=== PATIENT | male | born 1975 | race Caucasian/White ===

== ENCOUNTER 2019-01-22 07:39 | Emergency (ER) | payer OTHER ==
[~2019-01-22] VITALS: Ht 188 cm; Wt 117.0 kg
[2019-01-22] MEDS ORDERED: XANAX1 MG PO (07:52)
[2019-01-22] MEDS ORDERED: NEURONTIN 300300 M1 PO (07:52)
[2019-01-22] MEDS ORDERED: WELLBUTRIN 75 M75 M1 PO (07:53)
[2019-01-22] MEDS ORDERED: BUTALB-APAP-CA1 EACH PO (08:10)
[2019-01-22] MEDS ORDERED: FLEXERIL PO (08:13)
[2019-01-22] MEDS ORDERED: IBUPROFEN 800800 M1 PO (08:13)
[2019-01-22 08:20] VITALS: BP 110/85
== END 2019-01-22 08:26 | disposition home or self-care (01) ==
LOC: M.ERS 07:39
DX: S16.1XXA Strain of muscle, fascia and tendon at neck level, initial encounter (principal); X58.XXXA Exposure to other specified factors, initial encounter; Y93.89 Activity, other specified; Y92.89 Other specified places as the place of occurrence of the external cause; Y99.8 Other external cause status

== ENCOUNTER 2021-07-21 21:41 | Emergency (ER) | payer OTHER ==
[~2021-07-21] VITALS: Ht 188 cm; Wt 113.4 kg
[~2021-07-21 21:41] MED LIST: BUTALB-APAP-CA1 EACH PO; FLEXERIL PO; IBUPROFEN 800800 M1 PO; NEURONTIN 300300 M1 PO; WELLBUTRIN 75 M75 M1 PO; XANAX1 MG PO
[2021-07-21 22:17] LABS: ABSOLUTE BASOPHILS 0.1 thou/uL (0.0-0.2); ABSOLUTE EOSINOPHILS 0.1 thou/uL (0.0-0.7); ABSOLUTE LYMPHOCYTES 2.9 thou/uL (0.8-5.3); ABSOLUTE MONOCYTES 0.6 thou/uL (0.0-1.2); ABSOLUTE NEUTROPHILS 7.4 thou/uL (1.6-8.1); BASOPHILS 0.9 %; EOSINOPHILS 1.1 %; HEMOGLOBIN 15.7 gm/dL (14.0-18.0); LYMPHOCYTES 25.8 %; MCH 30.2 pg (26.0-34.0); MCHC 34.1 g/dL (28.0-37.0); MCV 88.6 fL (80.0-100.0); MONOCYTES 5.5 %; MPV 7.8 fl. (7.2-11.1); NUCLEATED RBCS 0 /100WBC; PLATELET COUNT* 193 thou/uL (150-400); POLYS 66.7 %; RDW-CV 13.9 % (10.5-14.5); WBC 11.1 thou/uL (4.0-11.0)
[2021-07-21 22:21] LABS: URINE BILIRUBIN NEGATIVE (Negative); URINE BLOOD NEGATIVE (Negative); URINE CLARITY CLEAR; URINE COLOR YELLOW; URINE GLUCOSE-RANDOM NEGATIVE (Negative); URINE KETONES NEGATIVE (Negative); URINE LEUKOCYTES NEGATIVE (Negative); URINE NITRITE NEGATIVE (Negative); URINE PROTEIN NEGATIVE (Negative); URINE SPECIFIC GRAVITY 1.025 (1.005-1.030); URINE UROBILINOGEN 0.2 E.U./dl (0.2-1.0)
[2021-07-21 22:27] LABS: CALCIUM 9.1 mg/dL (8.5-10.1); CREATININE 1.4 mg/dL (0.6-1.3); POTASSIUM 4.1 mmol/L (3.5-5.1)
[2021-07-21 22:32] LABS: ALBUMIN 3.8 g/dL (3.4-5.0); TOTAL BILIRUBIN 0.6 mg/dL (<0.1-1.0)
[2021-07-22 01:53] VITALS: BP 110/80
== END 2021-07-22 01:53 | disposition still patient (30) ==
LOC: M.ERS 21:41
PROVIDERS: Physician Assistant
DX: R91.8 Other nonspecific abnormal finding of lung field (principal); R10.32 Left lower quadrant pain; R14.0 Abdominal distension (gaseous)

== ENCOUNTER 2021-12-04 10:02 | Observation (INO) | payer OTHER ==
[~2021-12-04] VITALS: Ht 188 cm; Wt 113.4 kg
[2021-12-04 10:16] VITALS: BP 123/78
[2021-12-04 10:30] LABS: URINE BILIRUBIN NEGATIVE (Negative); URINE BLOOD NEGATIVE (Negative); URINE CLARITY CLEAR; URINE COLOR YELLOW; URINE GLUCOSE-RANDOM NEGATIVE (Negative); URINE KETONES NEGATIVE (Negative); URINE LEUKOCYTES-REFLEX NEGATIVE (Negative); URINE NITRITE-REFLEX NEGATIVE (Negative); URINE PROTEIN NEGATIVE (Negative); URINE SPECIFIC GRAVITY 1.015 (1.005-1.030); URINE UROBILINOGEN 0.2 E.U./dl (0.2-1.0)
[2021-12-04 10:42] LABS: ABSOLUTE BASOPHILS 0.1 thou/uL (0.0-0.2); ABSOLUTE EOSINOPHILS 0.1 thou/uL (0.0-0.7); ABSOLUTE LYMPHOCYTES 1.5 thou/uL (0.8-5.3); ABSOLUTE MONOCYTES 0.8 thou/uL (0.0-1.2); ABSOLUTE NEUTROPHILS 10.1 thou/uL (1.6-8.1); BASOPHILS 0.8 %; EOSINOPHILS 0.5 %; HEMATOCRIT 47.3 % (42.0-52.0); LYMPHOCYTES 12.1 %; MCH 29.9 pg (26.0-34.0); MCHC 33.8 g/dL (28.0-37.0); MCV 88.5 fL (80.0-100.0); MONOCYTES 6.2 %; MPV 7.3 fl. (7.2-11.1); NUCLEATED RBCS 0 /100WBC; PLATELET COUNT* 230 thou/uL (150-400); POLYS 80.4 %; RBC 5.34 mil/uL (4.50-6.00); RDW-CV 13.4 % (10.5-14.5); WBC 12.5 thou/uL (4.0-11.0)
[2021-12-04 10:50] LABS: CALCIUM 9.1 mg/dL (8.5-10.1); CREATININE 1.9 mg/dL (0.6-1.3); POTASSIUM 4.4 mmol/L (3.5-5.1)
[2021-12-04 10:55] LABS: ALBUMIN 3.8 g/dL (3.4-5.0); TOTAL BILIRUBIN 0.9 mg/dL (<0.1-1.0); TOTAL PROTEIN 7.2 g/dL (6.4-8.2)
[2021-12-04 14:04] VITALS: BP 113/64
[2021-12-04 14:15] VITALS: BP 125/63
[2021-12-04 16:03] VITALS: BP 115/68
[2021-12-04 20:00] VITALS: BP 126/68
[2021-12-04 23:06] LABS: GLYCOHEMOGLOBIN (HGB A1C) 5.5 % (4.8-5.6)
[2021-12-05] VITALS: BP 165/69
[2021-12-05 04:24] LABS: HEMATOCRIT 41.3 % (42.0-52.0); MCH 29.8 pg (26.0-34.0); MCHC 33.4 g/dL (28.0-37.0); MCV 89.4 fL (80.0-100.0); MPV 7.7 fl. (7.2-11.1); RBC 4.62 mil/uL (4.50-6.00); RDW-CV 13.6 % (10.5-14.5); WBC 8.3 thou/uL (4.0-11.0)
[2021-12-05 04:42] LABS: CALCIUM 8.3 mg/dL (8.5-10.1); CREATININE 1.3 mg/dL (0.6-1.3); POTASSIUM 4.3 mmol/L (3.5-5.1); TOTAL BILIRUBIN 0.5 mg/dL (<0.1-1.0); TOTAL PROTEIN 5.9 g/dL (6.4-8.2)
--- NOTE | 2021-12-05 04:45 | NUR ---
Alert and oriented x 4. He denies any need for pain meds. He has IVF's running and he has been voiding and straining his urine. Vitals have been stable. He has had nothing by mouth since midnight. He is up independently. He has slept intermittenly.
[2021-12-05 04:53] LABS: HEMOGLOBIN 13.8 gm/dL (14.0-18.0)
[2021-12-05] MEDS ORDERED: FLOMAX0.4 MG PO (10:09)
[2021-12-05 11:51] VITALS: BP 165/69
--- NOTE | 2021-12-05 12:29 | NUR ---
LETTY IV. PT UNDERSTANDS ALL FOLLOW UP ORDER. WILL DISCHARGE TO [facility].
== END 2021-12-05 12:45 | disposition home or self-care (01) ==
LOC: M.ERS 10:02 → M.TBA-ER 12:49 → M.2W 12:49
PROVIDERS: Physician Assistant; ADMIT Internal Medicine; ATTEND Internal Medicine
DX: N13.0 Hydronephrosis with ureteropelvic junction obstruction (principal); Z20.822 Contact with and (suspected) exposure to COVID-19; N17.9 Acute kidney failure, unspecified; D72.829 Elevated white blood cell count, unspecified; R73.9 Hyperglycemia, unspecified; Z79.899 Other long term (current) drug therapy; Z98.890 Other specified postprocedural states; Z85.118 Personal history of other malignant neoplasm of bronchus and lung